=== PATIENT | female | born 1970 | race Caucasian/White ===

== ENCOUNTER → 2017-12-13 08:45 | Outpatient (POV) | payer BC, SELFPAY | PROVIDERS: Visit Provider Dermatology | DX: Z00.00 Encounter for general adult medical examination without abnormal findings (principal) ==

== ENCOUNTER → 2019-01-14 09:39 | Outpatient (POV) | payer BC, SELFPAY | PROVIDERS: Visit Provider Dermatology | DX: Z00.00 Encounter for general adult medical examination without abnormal findings (principal) ==

== ENCOUNTER → 2019-10-28 14:08 | Outpatient (CLI) | payer BC, SELFPAY ==
--- NOTE | 2019-10-28 14:12 | XR_ITS ---
PROCEDURE: XR CHEST 2V CLINICAL HISTORY: COUGH, SOB The cough and shortness of breath COMPARISON: CXR CHEST(2 VIEWS-NOT PORTABLE) from 09/11/2012 FINDINGS: The cardiomediastinal silhouette and pulmonary vascularity are within normal limits. The lungs are clear without infiltrates, suspicious nodules, or pleural effusions. No acute bony abnormalities. IMPRESSION: No acute findings. Dictated by: Sanchez Cortez MD 10/28/2019 15:01 Electronically signed by Sanchez Cortez MD in [place] 10/28/2019 15:02
== END ==
PROVIDERS: PCP Family Medicine; Visit Provider Family Medicine
DX: R06.02 Shortness of breath (principal); R05 Cough
CPT/HCPCS: 71046

== ENCOUNTER → 2021-03-07 08:05 | Outpatient (CLI) | payer SELFPAY ==
--- NOTE | 2021-03-07 08:10 | CT_ITS ---
PROCEDURE: CT HEART W CALCIUM SCORE CLINICAL HISTORY: SCREENING COMPARISON: No exams were available for comparison TECHNIQUE: Axial images obtained with sagittal and coronal reformats. All CT scans at the facility use one or more dose reduction, viz: automated exposure control, ma/kV adjustment per patient size (including targeted exams where dose is matched to indication, i.e. head), or iterative reconstruction technique. FINDINGS: Coronary calcium score is 0. No identifiable calcific atherosclerotic plaque with very low cardiovascular disease risk Incidental note is made of borderline splenomegaly at 14 cm. IMPRESSION: No identifiable calcific atherosclerotic plaque with very low cardiovascular disease risk Dictated by: Sanchez Cortez MD 03/07/2021 09:12 Sanchez Cortez MD in [facility] 03/07/2021 09:12
== END ==
PROVIDERS: PCP Family Medicine; Visit Provider Family Medicine
DX: Z13.6 Encounter for screening for cardiovascular disorders (principal)
CPT/HCPCS: 75571

== ENCOUNTER → 2021-03-15 14:43 | Outpatient (POV) | payer SELFPAY | PROVIDERS: Visit Provider Dermatology | DX: Z00.00 Encounter for general adult medical examination without abnormal findings (principal) ==

== ENCOUNTER → 2021-05-16 11:44 | Outpatient (CLI) | payer BC, SELFPAY | PROVIDERS: Visit Provider Surgery | DX: Z01.812 Encounter for preprocedural laboratory examination (principal); Z20.822 Contact with and (suspected) exposure to COVID-19; Z12.11 Encounter for screening for malignant neoplasm of colon | CPT/HCPCS: C9803; U0003; U0005 ==

== ENCOUNTER 2021-05-18 06:11 | Day surgery (SDC) | payer BC, SELFPAY ==
[2021-05-16 10:00] VITALS: BMI 36.8
[2021-05-18 06:31] VITALS: BP 135/87; PULSE 120; RESP 18; TEMP 36.2; O2SAT 96
[2021-05-18 07:07] LABS: HCG Qualitative, Serum Negative (Negative)
--- NOTE | 2021-05-18 07:22 | P.PN_ITS ---
[facility] Anesthesia Checklist - Patient Identification Patient Identification: Arm Band - Structural Data Admitted From: Home Planned Operative Procedure/s: colonoscopy Consent for Planned Operative Procedure(s) Verified: Yes Verified Documents: Surgical Consent, History and Physical - NPO Status Verified Time NPO: 00:00 - Additional verifications Anesthesia Reactions: No - Airway Assessment C-Spine Mobility Assessed: Yes (mp2) TMJ Mobility Assessed: Yes Dentition: Good Dentition - Neurological Assessment Level of Consciousness: Awake, Alert - Anesthesia Plan Anesthesia Risk discussed: Yes Anesthesia Plan: Verified ASA Class: II Anesthesia Type: MAC [facility] History I have reviewed the patient's past medical history: Yes Medical History: Denies:: Cancer, Diabetes Mellitus Type 1, Diabetes Mellitus Type 2, Hypertension, Internal Pacemaker, MRSA, Seizures *Have you ever received a pneumonia vaccine?: No *Have you received a flu vaccine this season?: Yes Other Medical History: Reports: Sinus Problems Anesthesia experience/problems:: nac Laterality Cases: Bilateral: Tonsillectomy Other Surgeries: Yes: . No: Pacemaker Amputation: No Fractures: Yes - *Social History Last grade of school completed: Advanced degree Smoking Status: Never smoker Alcohol Intake: current Alcohol Intake Frequency:: holidays/special occasions only Substance Use Type: denies use *Occupational Status:: employed Housing: house Household Members: spouse, family *Travel in the last 8 weeks: None Family Hx:: Cancer
[2021-05-18 07:25] VITALS: O2SAT 98
[2021-05-18 08:00] VITALS: BP 122/76; PULSE 98; RESP 18; TEMP 36.3; O2SAT 95
--- NOTE | 2021-05-18 08:01 | HMH.SCOPE ---
- Procedure: Date: 05/18/21 Patient Date of :: 1970 Procedure Performed:: Total colonoscopy to terminal ileum with polypectomy by snare Indications:: 51-year-old female referred for initial screening colonoscopy Performing Provider:: Jarvis Bryson MD Referring Provider:: Ollie Wilhelm MD Sedation:: MAC sedation Procedure:: Adequate intravenous sedation was achieved. Digital examination was performed which was unremarkable. Variable stiffness Olympus colonoscope was inserted via the anus. Was advanced to the cecum. Colonic preparation was good. During advancement of the colonoscope there was thought to be a possible sessile polyp in the sigmoid colon. The colonoscope was advanced a short distance into the terminal ileum which was grossly normal. It was withdrawn through the colon with careful surveillance with some irrigation and suctioning. A small adenomatous appearing polyp was noted in the descending colon removed with cold snare. In the distal sigmoid colon there was noted to be a small adenomatous polyp removed with cold snare. Due to the potential findings on advancement of the colonoscope with possible sessile polyp the colonoscope was actually readvanced to the right colon and withdrawn to the rectum with careful surveillance on 2 occasions and no sessile polyp was noted. Was felt that this likely conglomeration of mucus which had dissipated. Essentially the colon was evaluated in his entirety 3 times. Retroflexion was performed within the rectum which revealed no evidence of any pathologic internal hemorrhoids. Colonoscope was withdrawn. Findings:: Polyps Recommendations:: Pending pathology repeat colonoscopy likely within 5 years Complications:: None immediately apparent Estimated blood obtained (mL): 2
[2021-05-18 08:10] VITALS: BP 148/89; PULSE 89; RESP 18; O2SAT 98
[2021-05-18 08:20] VITALS: BP 146/89; PULSE 83; RESP 18; O2SAT 98
[2021-05-18 08:30] VITALS: BP 133/92; PULSE 80; RESP 18; O2SAT 97
== END 2021-05-18 08:30 | disposition home or self-care (01) ==
LOC: OUTP 06:13
PROVIDERS: PCP Family Medicine; Visit Provider Surgery
PROC: 0DJD8ZZ Inspection of Lower Intestinal Tract, Via Natural or Artificial Opening Endoscopic (ICD-10-PCS; CPT 45385; principal; 2021-05-18 07:30)
DX: Z12.11 Encounter for screening for malignant neoplasm of colon (principal); Z80.9 Family history of malignant neoplasm, unspecified; Z88.1 Allergy status to other antibiotic agents; Z88.2 Allergy status to sulfonamides; Z91.048 Other nonmedicinal substance allergy status
CPT/HCPCS: 45385; 84703

== ENCOUNTER → 2021-09-01 09:12 | Outpatient (CLI) | payer BC, SELFPAY | PROVIDERS: PCP Family Medicine; Visit Provider Nurse Practitioner | DX: U07.1 COVID-19 (principal) | CPT/HCPCS: C9803; U0003; U0005 ==

== ENCOUNTER → 2023-01-19 23:21 | Outpatient (CLI) | payer BC, SELFPAY | LOC: LAB.DROPOF 23:22 | PROVIDERS: PCP Student in an Organized Health Care Education/Training Program; Visit Provider Student in an Organized Health Care Education/Training Program | DX: U07.1 COVID-19 (principal); J02.9 Acute pharyngitis, unspecified; R05.9 Cough, unspecified | CPT/HCPCS: 87635; C9803; U0003; U0005 ==

== ENCOUNTER → 2023-03-13 11:29 | Outpatient (CLI) | payer BC, SELFPAY ==
[2023-03-13 11:36] LABS: Basophils # 0.1 K/mm3 (0-0.2); Basophils % 0.7 % (0.1-2.0); Eosinophils # 0.2 K/mm3 (0.0-0.4); Eosinophils % 1.7 % (0.1-12.0); Hematocrit 48.9 % (37.0-47.0); Hemoglobin 15.8 g/dL (12.2-16.2); Lymphocytes # 2.2 K/mm3 (0.7-4.5); Lymphocytes % 24.1 % (10-50); Mean Corpuscular HGB Conc 32.2 g/dL (31.8-35.4); Mean Corpuscular Hemoglobin 29.4 pg (27.0-31.2); Mean Corpuscular Volume 91.1 fl (81-99); Mean Platelet Volume 8.2 fl (7.4-10.4); Monocytes # 0.5 K/mm3 (0.1-1.0); Monocytes % 4.9 % (1.7-9.3); Neutrophils # 6.3 K/mm3 (1.8-7.8); Neutrophils % 68.6 % (37.0-80.0); Platelet Count 261 K/mm3 (142-424); Red Blood Count 5.37 M/mm3 (4.20-5.40); Red Cell Distribution Width 13.5 % (11.5-17.5); White Blood Count 9.2 K/mm3 (4.8-10.8)
[2023-03-13 12:15] LABS: Alanine Aminotransferase 42 U/L (12-78); Albumin Level 4.4 g/dl (3.5-5.0); Albumin/Globulin Ratio 1.3 (1.1-1.8); Alkaline Phosphatase 103 U/L (38-126); Anion Gap 11.9 mEq/L (5-15); Aspartate Amino Transferase 34 U/L (14-36); Bilirubin,Total 0.4 mg/dl (0.2-1.3); Blood Urea Nitrogen 14 mg/dl (7-17); Calcium 9.8 mg/dl (8.4-10.2); Carbon Dioxide 30 mmol/L (22.0-30.0); Chloride 104 mmol/L (98-107); Chol/HDL Ratio 6.1 (1-3.5); Cholesterol 171 mg/dl (140-200); Estimated Glomerular Filt Rate 88 ml/min (>60); GFR (African American) 106 ML/MIN (>60); Globulin 3.5 g/dL (1.3-3.2); Glucose 121 mg/dl (74-100); HDL Cholesterol 28 mg/dl (40-60); Potassium 4.9 mmoL/L (3.5-5.1); Sodium 141 mmol/L (136-145); Total Protein,Serum 7.9 g/dl (6.3-8.2); Triglycerides 197 mg/dl (30-150); VLDL Cholesterol 39 mg/dL (0-40)
[2023-03-13 12:27] LABS: Direct LDL Cholesterol 105.62 mg/dL (100-129)
[2023-03-13 12:33] LABS: 25-OH Vitamin D, Total 40.4 ng/mL (30-100)
[2023-03-13 12:47] LABS: Thyroid Stimulating Hormone 1.39 uIU/mL (0.465-4.68)
[2023-03-13 13:28] LABS: Hemoglobin A1C 5.9 % (4.0-6.0)
[2023-03-13 13:35] LABS: Free T4 (Free Thyroxine) 1.19 ng/dl (0.78-2.19)
== END ==
PROVIDERS: PCP Internal Medicine; Visit Provider Internal Medicine
DX: Z00.00 Encounter for general adult medical examination without abnormal findings (principal); R73.09 Other abnormal glucose; E66.9 Obesity, unspecified; Z68.39 Body mass index [BMI] 39.0-39.9, adult; Z79.899 Other long term (current) drug therapy
CPT/HCPCS: 80053; 80061; 82306; 83036; 84439; 84443; 85025

== ENCOUNTER 2024-05-29 18:05 | Outpatient (CLI) | payer BC, OTHER, SELFPAY ==
[2024-05-29 17:23] LABS: Basophils # 0.1 K/mm3 (0-0.2); Basophils % 1.3 % (0.1-2.0); Eosinophils # 0.1 K/mm3 (0.0-0.4); Eosinophils % 1.1 % (0.1-12.0); Hematocrit 48.5 % (37.0-47.0); Hemoglobin 16.7 g/dL (12.2-16.2); Lymphocytes # 2.9 K/mm3 (0.7-4.5); Lymphocytes % 25.4 % (10-50); Mean Corpuscular HGB Conc 34.5 g/dL (31.8-35.4); Mean Corpuscular Hemoglobin 31.2 pg (27.0-31.2); Mean Corpuscular Volume 90.5 fl (81-99); Mean Platelet Volume 7.8 fl (7.4-10.4); Monocytes # 0.7 K/mm3 (0.1-1.0); Monocytes % 6.3 % (1.7-9.3); Neutrophils # 7.5 K/mm3 (1.8-7.8); Platelet Count 203 K/mm3 (142-424); Red Blood Count 5.36 M/mm3 (4.20-5.40); Red Cell Distribution Width 13.8 % (11.5-17.5); White Blood Count 11.3 K/mm3 (4.8-10.8)
[2024-05-29 17:59] LABS: Hemoglobin A1C 6.9 % (4.0-6.0)
[2024-05-29 18:30] LABS: Albumin Level 4.8 g/dl (3.5-5.0); Chloride 101 mmol/L (98-107)
[2024-05-29 18:31] LABS: Potassium 4.8 mmoL/L (3.5-5.1); Sodium 141 mmol/L (136-145)
[2024-05-29 18:33] LABS: Alanine Aminotransferase 54 U/L (12-78); Aspartate Amino Transferase 53 U/L (14-36); Blood Urea Nitrogen 14 mg/dl (7-17); Carbon Dioxide 31 mmol/L (22.0-30.0); Estimated Glomerular Filt Rate 87 ml/min (>60); GFR (African American) 106 ML/MIN (>60); Total Protein,Serum 8.9 g/dl (6.3-8.2)
[2024-05-29 18:34] LABS: Alkaline Phosphatase 103 U/L (38-126); Bilirubin,Total 1.1 mg/dl (0.2-1.3); Calcium 10.2 mg/dl (8.4-10.2); Chol/HDL Ratio 6.1 (1-3.5); Cholesterol 184 mg/dl (140-200); Glucose 113 mg/dl (74-100); HDL Cholesterol 30 mg/dl (40-60); Triglycerides 175 mg/dl (30-150); VLDL Cholesterol 35 mg/dL (0-40)
[2024-05-29 18:40] LABS: Albumin/Globulin Ratio 1.2 (1.1-1.8); Anion Gap 13.8 mEq/L (5-15); Globulin 4.1 g/dL (1.3-3.2)
[2024-05-29 18:45] LABS: Direct LDL Cholesterol 115.99 mg/dL (100-129)
[2024-05-29 18:53] LABS: HIV (1&2) Antibody Rapid NONREACTIVE (NONREACTIVE)
[2024-05-31 08:28] LABS: HCV Ab Non Reactive (Non Reactive)
== END 2024-05-29 23:59 | disposition home or self-care (01) ==
LOC: LAB.DROPOF 18:05
PROVIDERS: PCP Internal Medicine; Visit Provider Internal Medicine
DX: Z11.4 Encounter for screening for human immunodeficiency virus [HIV] (principal); Z00.00 Encounter for general adult medical examination without abnormal findings; Z13.1 Encounter for screening for diabetes mellitus; Z13.220 Encounter for screening for lipoid disorders; Z11.59 Encounter for screening for other viral diseases
CPT/HCPCS: 80053; 80061; 83036; 85025; 86803; 87389

== ENCOUNTER 2024-06-04 07:15 | Outpatient (CLI) | payer BC, OTHER, SELFPAY ==
--- NOTE | 2024-06-04 07:15 | US_ITS ---
PROCEDURE INFORMATION: Exam: US Abdomen, Limited; Right Upper Quadrant Exam date and time: 06/04/2024 7:15 AM Age: 54 years old Clinical indication: Abdominal pain; Acute; Additional info: Ruq pain TECHNIQUE: Imaging protocol: Real time ultrasound of the abdomen with image documentation. Limited exam focused on the right upper quadrant. COMPARISON: CT HEART W CALCIUM SCORE 03/07/2021 8:19 AM FINDINGS: Liver: Diffuse coarsened increased echogenicity of the liver consistent with fatty infiltration or other diffuse hepatocellular process. No mass or intrahepatic biliary duct dilatation. Appropriate color flow within the hepatic and portal veins. Gallbladder: Few small gallstones/gravel within the gallbladder as well as a small amount of sludge. No significant gallbladder wall thickening. Biliary ducts: Bile ducts are normal in caliber. CBD 3.1 mm. Pancreas: Visualized pancreas is unremarkable. Right kidney: Right kidney measures 10.3 cm in length. No hydronephrosis. Intraperitoneal space: No free fluid. IMPRESSION: 1. Diffuse coarsened increased echogenicity of the liver consistent with fatty infiltration or other diffuse hepatocellular process. 2. Few small gallstones/gravel within the gallbladder as well as a small amount of gallbladder sludge.
== END 2024-06-04 23:59 | disposition home or self-care (01) ==
LOC: RAD 07:15
PROVIDERS: PCP Internal Medicine; Visit Provider Internal Medicine
DX: R10.11 Right upper quadrant pain (principal)
CPT/HCPCS: 76705

== ENCOUNTER 2024-12-12 16:32 | Outpatient (CLI) | payer BC, OTHER, SELFPAY ==
--- NOTE | 2024-12-12 16:36 | XR_ITS ---
PROCEDURE INFORMATION: Exam: XR Right Shoulder Exam date and time: 12/12/2024 4:38 PM Age: 54 years old Clinical indication: Pain; Shoulder; Right; Additional info: Rotator cuff injury TECHNIQUE: Imaging protocol: Radiologic exam of the right shoulder. Views: 2 or more views. COMPARISON: CT HEART W CALCIUM SCORE 03/07/2021 8:19 AM FINDINGS: Bones/joints: No acute fracture or dislocation. Mild spurring at the margins of the acromioclavicular joint. Benign-appearing ill-defined sclerotic bone lesion in the central aspect of the humeral head. The right ribs are unremarkable. Soft tissues: Normal. IMPRESSION: 1. Benign-appearing humeral head bone lesion which was faintly seen on a prior exam from 10/28/2019. 2. AC joint degenerative changes.
[2024-12-12 16:59] LABS: Microalbumin/Creatinine Ratio 15.9
[2024-12-12 17:00] LABS: Creatinine,Urine Random 240 mg/dL (Not Estab.)
== END 2024-12-12 23:59 | disposition home or self-care (01) ==
LOC: RAD 16:33
PROVIDERS: PCP Internal Medicine; Visit Provider Internal Medicine
DX: S46.001A Unspecified injury of muscle(s) and tendon(s) of the rotator cuff of right shoulder, initial encounter (principal); M25.711 Osteophyte, right shoulder; M19.011 Primary osteoarthritis, right shoulder; M75.81 Other shoulder lesions, right shoulder; E11.9 Type 2 diabetes mellitus without complications; Z79.85 Long-term (current) use of injectable non-insulin antidiabetic drugs
CPT/HCPCS: 73030; 82043; 82570

== ENCOUNTER 2025-01-07 16:00 | Outpatient (RCR) | payer BC, OTHER, SELFPAY ==
--- NOTE | 2024-12-29 16:57 | HMH.PTOPEV ---
PT Outpatient Evaluation Rehab PT Outpatient Evaluation Start: 12/29/24 15:50 Freq: Status: Active Protocol: Document 12/29/24 15:50 RENUKA (Rec: 12/29/24 16:56 RENUKA [id number]) E-signed By Jose Luis Tony, PT Outpatient Therapy Subjective History Subjective History Pt is a 54 yof who is referred to [facility] outpatient PT with complaints of R shoulder pain that began approximately 2-3 months ago. Pt reports that she had x-rays done which were negative. Pt reports that her motion is fine in all directions except reaching behind her back and reaching upwards and backwards. Pt reports that she also has difficulty fastening her bra. Pt reports that she is unable to latch her door in her classroom open due to it being a fire door. Pt also reports difficulty reaching into her cabinets at school and when cooking. Pt reports significant difficulty sleeping due to pain when laying on her R shoulder. Occupation: Teacher PMH: T2DM New diagnosis of cancer in past 12 No months? Chief Complaint Pain,Clicks,Gives out/Unstable Symptom Type Ache,Sharp Symptoms Relieved By Ice,OTC Meds,Prescription Meds Symptoms Aggravated By Lifting Prior Functional Limitations None Current Functional Limitations Reaching,Lifting,Housework Symptom Description Constant but Variable,Activity Dependent Level of pain today (0-10) 8 Pain scale - at its best (0-10) 1 Pain scale - at its worst (0-10) 9 Shoulder/Elbow Eval Shoulder Objective Measurements Palpation Tenderness tenderness shoulder exam standard right Shoulder Palpation Findings Tenderness Shoulder Palpation Overall Comment TTP 3/4 in intertubecular groove Posture Shoulder Posture Sitting Position Neutral Shoulder Posture Standing Position Neutral Shoulder ROM Right Shoulder Abduction Active Range of 150 Motion (degrees) Shoulder Abduction Passive Range of 155 Motion (degrees) Shoulder Flexion Active Range of Motion 170 (degrees) Query Text: Shoulder Flexion Passive Range of Motion 175 (degrees) Shoulder External Rotation Active Range 80 of Motion (degrees) Shoulder External Rotation Passive Range 85 of Motion (degrees) Shoulder Internal Rotation Active Range 50 of Motion (degrees) Shoulder Internal Rotation Passive Range 55 of Motion (degrees) pain with active ROM shoulder exam right standard pain with passive ROM shoulder exam right standard full ROM shoulder exam standard left Shoulder MMT Shoulder Abduction Strength Grade 4 Good Shoulder Extension Strength Grade 4 Good Shoulder Flexion Strength Grade 4- Good- Shoulder Horizontal Abduction Strength 3 Fair Grade Shoulder Horizontal Adduction Strength 4 Good Grade Shoulder External Rotation Strength 3+ Fair+ Grade Shoulder Internal Rotation Strength 2+ Poor+ Grade Shoulder Special Tests Shoulder Drop Arm Test Negative Right Shoulder Posterior Apprehension Test Negative Right Shoulder Clunk Test Negative Right Shoulder Empty Can (Supraspinatus) Test Negative Right Shoulder Grind Test Negative Right Shoulder Gant-Earl Impingement Positive Right Test Shoulder Neer Impingement Test Positive Right Shoulder Saunders Test Positive Right Elbow Objective Measurements QuickDASH Activities Please rate your ability to do the following activities in the last week by selecting the number below the appropriate response. 1. Open a tight or new jar. No difficulty 2. Do heavy jump iron machine presser (e.g., wash No difficulty pena, floors). 3. Carry a shopping bag or briefcase. No difficulty 4. Wash your back. Moderate difficulty 5. Use a knife to cut food. No difficulty 6. Recreational activities in which you No difficulty take some force or impact through your arm, shoulder, or hand (e.g., golf, hammering, tennis, etc.). 7. During the past week, to what extent Quite a bit has your arm, shoulder or hand problem interfered with your normal social activities with family, friends, neighbors or groups? 8. During the past week, were you Slightly limited limited in your work or other regular daily activites as a result of your arm, shoulder or hand problem? 9. Arm, shoulder or hand pain. Severe 10. Tingling (pins and needles) in your Mild arm, shoulder or hand. 11. During the past week, how much Severe difficulty difficulty have you had sleeping because of the pain in your arm, shoulder or hand? Quick DASH 24 Miscellaneous Dx PT Eval Objective Objective Dynamic Labral Shear Test: + Outpatient Therapy Assessment Impairments Problems/Impairmments Palpation Tenderness,Impaired Range of Motion,Impaired Strength,Impaired Dressing, Impaired Household Care, Impaired Work Activities, Subjective C/O Pain Prognosis Rehab Potential Good Clinical Impression Consistent with Diagnosis Yes Consistent with Labral Pathology Additional details: Pt's signs and symptoms are consistent with a R Labral pathology. Pt would benefit from scapular, RC strengthening and motor control. Short Term Goals Number of Weeks 4 Decreased Palpation Tenderness Yes: 2/4 to TTP assessment above Increase Range of Motion Yes: IR to 65 Increase Strength Yes: 3+/5 to R shoulder globally Improve Tolerance to Work Activities Yes: Normal day's work without increasing pain Improve Quick Dash Score Yes: <19 Decrease Subjective C/O Pain Yes: 5/10 with above assessment Patient to be Ind w/ HEP Yes Supervisor [employer] Goals Number of Weeks 8 Decreased Palpation Tenderness Yes: 0-1/4 to TTP assessment above Increase Range of Motion Yes: IR to 80 Increase Strength Yes: 4+/5 to R shoulder globally Restore Ability to Lift Objects Overhead Yes: 3# with proper SH rhythm and without increasing pain Improve Ability to Dress Self Yes: Fasten bra without increasing pain Improve Ability For Household Care Yes: Able to reach for cabinets without increasing pain Improve Quick Dash Score Yes: <14 Decrease Subjective C/O Pain Yes: 2-3/10 with above assessment Patient to be Ind w/ Advanced HEP Yes Outpatient Therapy Plan of Care Treatment Plan May Include Therapeutic Exercise Including Home Yes Exercise Program Manual Therapy Techniques Yes Neuromuscular Re-education Yes Therapeutic Activities to Return to Yes Previous Functional/Work Level ADL/Self Care Education Yes Dry Needling Yes Thermal Modalities Yes Electrical Stimulation Yes Manual Lymphatic Drainage Yes Eval/Re-Eval Yes Frequency Times per week 2 Duration Number of Weeks 8 Addendums This patient is a candidate for social No or vocational rehab? Patient/Guardian verbally acknowledges Yes understanding of treatment program and consents to further treatment? Patient/Guardian verbally acknowledges Yes understanding of diagnosis, prognosis and goals for treatment? Eval Complexity PT Charges 75159 - Low Complexity PHYSICIAN CERTIFICATION: I certify the specified therapy services for Deanna Wilder are required, authorized, and reviewed every 30 days.
== END 2025-01-09 23:59 | disposition home or self-care (01) ==
LOC: PT 16:00
PROVIDERS: PCP Internal Medicine; Visit Provider Internal Medicine
DX: S46.001A Unspecified injury of muscle(s) and tendon(s) of the rotator cuff of right shoulder, initial encounter (principal)
CPT/HCPCS: 97014; 97035; 97110; 97163; 97530; G0283

== ENCOUNTER 2025-01-09 06:47 | Outpatient (CLI) | payer BC, OTHER, SELFPAY ==
--- NOTE | 2025-01-09 07:00 | MR_ITS ---
FINAL REPORT CLINICAL HISTORY: Rotator cuff injury. right shoulder pain. pain when raising arm above head. symptoms x3-4months. no injury or trauma. COMPARISON: None FINDINGS: Multi planar MR imaging of the right shoulder was performed. The supraspinatus tendon appears intact. There is no abnormal fluid in the subacromial/subdeltoid bursa. There is a lobular complex signal abnormality in the humeral head measuring 2.6 x 2.5 cm, probably related to an enchondroma. The posterior labrum is intact. There is a defect extending across the anterior labrum consistent with tear. Subscapularis tendon is intact. The biceps tendon appears intact. There are mild hypertrophic changes at the acromioclavicular joint. IMPRESSION: Mild hypertrophic changes at the acromioclavicular joint. Tear of the anterior labrum. Presumed enchondroma. Reviewed, Interpreted and Dictated by Matthew Cordova MD Transcribed by Chantale Martin Authenticated and [facility]
== END 2025-01-09 23:59 | disposition home or self-care (01) ==
LOC: RAD 06:48
PROVIDERS: PCP Internal Medicine; Visit Provider Internal Medicine
DX: S43.491A Other sprain of right shoulder joint, initial encounter (principal); M24.9 Joint derangement, unspecified
CPT/HCPCS: 73221

== ENCOUNTER 2025-01-19 10:00 | Outpatient (RCR) | payer BC, OTHER, SELFPAY | END 2025-01-19 23:59 | disposition home or self-care (01) | LOC: PT 10:00 | PROVIDERS: PCP Internal Medicine; Visit Provider Internal Medicine | DX: S46.001A Unspecified injury of muscle(s) and tendon(s) of the rotator cuff of right shoulder, initial encounter (principal) | CPT/HCPCS: 97014; 97016; 97033; 97035; 97110; G0283 ==

== ENCOUNTER 2025-03-09 06:23 | Day surgery (SDC) | payer BC, OTHER, SELFPAY ==
[2025-03-05 09:35] VITALS: BMI 36.1
--- NOTE | 2025-03-09 07:12 | EXP.HP ---
History of Present Illness *Admission Date: 03/09/25 *Reason for visit:: Personal history of adenomatous colon polyps *History of present illness: Mrs. Wilder is a 55-year-old female who is here for screening/surveillance colonoscopy secondary to a personal history of adenomatous colon polyps. The examination is deemed medically necessary for surveillance colonoscopy. The patient has been seen, interviewed and examined prior to the procedure by both myself and the anesthesia provider. [facility] Disclaimer: The information contained in this section may have been updated after the patient was seen, as this information can be updated by other users. Medical History Back pain History of abdominal hernia History of diabetes mellitus History of anxiety Neoplasm of skin Normal colonoscopy 2020 HX: benign breast biopsy left Chemical pneumonia Depression Migraine Surgical History Hx of section S/P tonsillectomy S/P ORIF (open reduction internal fixation) fracture Family History Father Cancer tonsil Mother Cancer breast Other Migraine Social History Smoking Status: Never smoker second hand exposure: No alcohol intake: current alcohol intake frequency: a few times a week substance use type: denies use current occupational status: employed Travel in the last 8 weeks?: None household members: spouse and family housing: house number of children: 1 current occupation: Teacher current occupational exposures/hazards: No caffeine: Yes Have you lived/traveled outside [place] in past 30 days?: No Contact w/someone who lives/traveled outside US past 30 days?: No Exposure to someone with infectious disease in past 14 days?: No Do you have a fever (greater than 100.4 F or 38 C)?: No Have you tested positive for COVID-19?: No Exposed to someone with COVID-19 in past 14 days?: No Do you have a sore throat?: No Do you have a cough?: No Do you have any weakness?: No Do you have any diarrhea?: No Are you experiencing any unusual bleeding?: No Do you have any muscle aches/pain?: No Do you have any abdominal pain?: No Are you experiencing loss of taste or smell?: No Other Medical History Have you received the Flu Vaccine for this season: No Have you received the Pneumonia Vaccine: No Review of Systems Review of Systems Review of systems (narrative): Negative *Cardiovascular Comments: Negative *Gastrointestinal Comments: Negative *Genitourinary Comments: Negative *Musculoskeletal Comments: Negative *Neurologic Comments: Negative Meds Home Medications and Allergies Home Medications ?Medication ?Instructions ?Recorded ?Confirmed ?Type cholecalciferol (vitamin D3) 50 50 mcg PO DAILY 03/13/23 03/09/25 History mcg (2,000 unit) capsule ibuprofen 600 mg tablet 600 mg PO Q8H PRN Mild Pain (Scale 03/13/23 03/09/25 History Score 1-4) multivitamin (Daily Multi-Vitamin 1 tab PO DAILY 03/13/23 03/09/25 History tablet) fluticasone propionate 50 1 spray intranasal DAILY #16 grams 07/23/23 03/09/25 Rx mcg/actuation nasal spray,suspension (Allergy Relief (fluticasone)) Bifidobacterium infantis 10.5 mg 1,000 mg PO DAILYDM 11/07/23 03/09/25 History (10 million cell) chewable tablet (Align (B.infantis)) cetirizine 10 mg disintegrating 10 mg PO DAILY PRN Allergy Symptoms 11/07/23 03/09/25 History tablet estradiol 0.05 mg-norethindrone 1 patch transdermal ONCE #8 ea 06/23/24 03/09/25 Rx 0.14 mg/24 hr semiwkly transderm patch (CombiPatch) acyclovir 5 % topical ointment 1 applic topical 6XD 7 days #5 01/08/25 03/09/25 Rx (Zovirax) grams tirzepatide 10 mg/0.5 mL 10 mg (0.5 mL) SQ WEEKLY #2 mL 02/10/25 03/09/25 Rx subcutaneous pen injector (Mounjaro) metaxalone 800 mg tablet See Rx Instructions .Route 03/06/25 03/09/25 Rx .COMPLEX #30 tabs omeprazole 20 mg tablet,delayed 20 mg PO DAILY 03/09/25 03/09/25 History release New Prescriptions to Start Prescriptions: Allergies Allergy/AdvReac Type Severity Reaction Status Date / Time ampicillin Allergy Mild Rash Verified 03/09/25 07:23 contact metal agent Allergy Mild Blisters Verified 03/09/25 07:23 Sulfa (Sulfonamide Allergy Mild Itching Verified 03/09/25 07:23 Antibiotics) Exam *Routine HEENT Exam Head: Present normocephalic Eye: Present EOMI and PERRL ENT: Present mucous membranes moist *Routine Neck Exam Neck: Present supple *Routine Respiratory Exam Respiratory: Present CTA bilaterally *Routine Cardiovascular Exam Cardiovascular: Present RRR *Routine Abdominal Exam Abdominal: Present soft and normoactive bowel sounds; Absent tenderness *Routine Rectal Exam Rectal:: deferred *Routine Genitalia Exam Genitalia:: deferred *Routine Extremities Exam Extremities: Absent cyanosis, clubbing or edema *Routine Skin Exam Skin: Present warm; Absent rash *Routine Neurological Exam Neurological: Present alert and oriented X3 Assessment and Plan *Assessment and plan (1) Personal history of adenomatous and serrated colon polyps: Status: Acute Category: Medical Code(s): Z86.0101 - Personal history of adenomatous and serrated colon polyps Plan A/P: 1. Personal history of adenomatous colon polyps is the preprocedural diagnosis. The patient's last colonoscopy was in May 2021 (Jarvis Bryson) the patient will be anesthetized/sedated using MAC sedation. The patient has been seen and examined. Cardiac and lung assessment prior to the examination is stable. Proceed with planned screening/surveillance colonoscopy.
[2025-03-09 07:26] VITALS: BP 139/65; PULSE 94; RESP 18; TEMP 36.3; O2SAT 96
--- NOTE | 2025-03-09 07:32 | HMH.PROCNOTE ---
[facility] Procedure Note Date: 03/09/25 Time: 08:20 Procedure Note:: Colonoscopy Procedure Report: Colonoscopy with cold snare polypectomy Endoscopist: German Turner II, MD Referring physician: Kranthi Chen DO Date of Procedure: March 09, 2025 Equipment: Olympus [id number] adult colonoscope Sedation: MAC sedation Indication: Mrs. Wilder is a 55-year-old female who is here for follow-up screening/surveillance colonoscopy. The patient did have a colonoscopy in May 2021 at which time she had a couple of polyps (tubular adenomas) removed (Jarvis Bryson MD). The patient reports no abdominal pain, weight loss, change in her bowel habits or family history of colon cancer. She did have a brief bout of bright red rectal bleeding in December 2024 that was felt to be hemorrhoidal. Procedure: Prior to the procedure, a history and physical exam was performed, and patient's medications and allergies were reviewed. The risks, benefits and alternatives of the sedation and procedure were discussed with the patient. All questions were answered and informed consent was obtained. The patient was brought to the procedure room. Patient identification and proposed procedure were verified by the physician and the nurse. The patient was placed in a left lateral decubitus position and the scope was passed under direct vision. Throughout the procedure, the patient's blood pressure, pulse, and oxygen saturations were monitored continuously. The colonoscopy was accomplished without difficulty. The patient tolerated the procedure well. Findings: On digital rectal examination there was normal rectal tone. There were no external hemorrhoids. The colonoscope was introduced through the anal canal to the rectum and advanced to the cecum. The ileocecal valve and appendiceal orifice were identified. The scope was advanced a short distance into the ileum which appeared grossly normal. The scope was then withdrawn into the colon. The cecum, ascending and transverse colon and mucosa were grossly normal. There were 2 colon polyps (transverse x 1 (11 mm) and sigmoid x 1 (8 mm)). Both of these were removed via cold snare polypectomy. There were very mildly scattered shallow diverticuli throughout the sigmoid colon (LEFT colon). The rectum itself was normal. Upon retroflexion within the rectum there were grade 2 internal hemorrhoids. The preparation was excellent throughout with [place] Preparation Score of 9. The cecal time was 12 minutes. Impression: 1. Colonic polyps x 2 (8 and 11 mm) 2. Mild sigmoid diverticulosis 3. Grade 2 internal hemorrhoids Plan: I will follow-up the polyp histology and recommend repeat surveillance colonoscopy again in 5 years. I would encourage psyllium bulking fiber supplementation on a maintenance basis.
[2025-03-09] MEDS: LACTATED RINGERS 1000ML 1,000 ML 50 ML IV (07:34)
[2025-03-09 07:37] LABS: POC Glucose,Bedside 114 (70-110)
[2025-03-09 08:21] VITALS: BP 90/52; PULSE 92; RESP 18; TEMP 36.1; O2SAT 96
[2025-03-09 08:31] VITALS: BP 96/57; PULSE 88; RESP 18; TEMP 36.1; O2SAT 96
[2025-03-09 08:41] VITALS: BP 108/61; PULSE 81; RESP 18; TEMP 36.1; O2SAT 99
[2025-03-09 08:51] VITALS: BP 110/70; PULSE 79; RESP 18; TEMP 36.1; O2SAT 99
== END 2025-03-09 09:04 | disposition home or self-care (01) ==
PROVIDERS: PCP Internal Medicine; Visit Provider Internal Medicine Gastroenterology
PROC: 0DJD8ZZ Inspection of Lower Intestinal Tract, Via Natural or Artificial Opening Endoscopic (ICD-10-PCS; CPT 45378; principal; 2025-03-09 08:00)
DX: Z12.11 Encounter for screening for malignant neoplasm of colon (principal); D12.5 Benign neoplasm of sigmoid colon; D12.3 Benign neoplasm of transverse colon; K57.30 Diverticulosis of large intestine without perforation or abscess without bleeding; K64.1 Second degree hemorrhoids; Z86.0101 Personal history of adenomatous and serrated colon polyps; Z79.899 Other long term (current) drug therapy; Z88.2 Allergy status to sulfonamides; Z88.0 Allergy status to penicillin
CPT/HCPCS: 45385; 82962; J2003; J2704; J7120

== ENCOUNTER 2025-03-17 15:49 | Outpatient (CLI) | payer BC, OTHER, SELFPAY ==
--- OUTSIDE RECORDS SUMMARY | 2025-03-17 15:51 | XMS_ITS | Clinical Summary ---
Author Organization [facility] Address [address] [id number] Care Team Providers Care Corporate Securities Research Analyst Name Role Phone Gustavo Kranthi Solorzano DO Primary Care Provider + Allergies Active Allergy Reactions Criticality Noted Date Comments Other Dermatitis High 02/28/2018 Allergic to metal alloys including Surgical Steel/ Blisters Penicillins Rash High 02/28/2018 Rash Sulfa Antibiotics Rash High 02/28/2018 Rash Medications No known medications Active Problems No known active problems Family History Medical History Relation Name Comments Breast cancer Mother Ovarian cancer Neg Hx Relation Name Status Comments Mother Social History Tobacco Use Types Packs/Day Years Used Date Smoking Tobacco: Never Smokeless Tobacco: Never Alcohol Use Standard Drinks/Week Comments Yes 0 (1 standard drink = 0.6 oz pur e alcohol) rare Comments No Sex and Gender Information Value Date Recorded Sex Assigned at Not on file Legal Sex Female 10:43 AM EDT Gender Identity Not on file Sexual Orientation Not on file Last Filed Vital Signs Vital Sign Reading Time Taken Comments Blood Pressure 122/80 03/15/2021 9:14 AM EDT Pulse - - Temperature - - Respiratory Rate - - Oxygen Saturation - - Inhaled Oxygen Concentration - - Weight 117 kg (257 lb 6.4 oz) 03/15/2021 9:14 AM EDT Height 172.7 cm (5' 8 ) 03/15/2021 9:14 AM EDT Body Mass Index 39.14 03/15/2021 9:14 AM EDT Plan of Treatment Health Maintenance Due Date Last Done Comments Annual Gynecologic Pelvic an d Breast Exam 1970 TDAP/TD VACCINES (1 - Tdap) 1989 COLOGUARD 2015 COLON CANCER SCREENING 5 YEA R SIGMOIDOSCOPY 2015 COLONOSCOPY 2015 [address]AL CANCER SCREENING 2015 CT COLONOGRAPHY 2015 FECAL OCCULT BLOOD TEST 2015 FIT Testing (1 year) 2015 Pneumococcal Vaccine 50+ (1 of 1 - PCV) 02/09/2020 ANNUAL PHYSICAL 03/15/2021 HEPATITIS C SCREENING 03/15/2021 INFLUENZA VACCINE 05/13/2025 05/18/2024, , 05/26/2022, Additional history exists MAMMOGRAM 08/01/2026 08/01/2024, 09/2022, 02/03/2022, Additional history exists ZOSTER VACCINE Completed 05/21/2023, 03/14/2023 COVID-19 Vaccine Completed 05/18/2024, , 05/26/2022, Additional history exists Procedures Procedure Name Priority Date/Time Associated Diagnosis Comments MAMMO SCREENING DIGITAL TOMOSYNTHESIS BILATERAL W CAD Routine 08/01/2024 10:15 AM EST Visit for screening mammogram from Last 3 Months or Most Recently Relevant to Health Maintenance Results * Mammo Screening Digital Tomosynthesis Bilateral With CAD (08/01/2024 10:15 AM EST) Anatomical Region Laterality Modality Breast N/A Mammography 08/11/2024 11:3 5 AM EST Impressions 08/11/2024 11:40 AM EST No findings suspicious for malignancy. ACR BI-RADS CATEGORY: 1, NEGATIVE RECOMMENDATION: Yearly mammogram, yearly clinical breast exam, and encourage self breast awareness. As the patient's calculated lifetime risk of breast cancer is 20.5%, she is considered at high risk for developing breast malignancy and annual high-risk screening with breast MRI is recommended. CAD was used. The standard false negative rate of mammography is between 10% and 25%. Complex patterns or increased breast density will markedly elevate the false negative rate of mammography. A letter, in lay terminology, with the results of this exam will be mailed to the patient. If there is a palpable area of concern, biopsy should be considered regardless of imaging findings. This report was finalized on 08/11/2024 11:40 AM by Lexi Stevens MD. Narrative 08/11/2024 11:40 AM EST ROUTINE DIGITAL SCREENING MAMMOGRAM WITH TOMOSYNTHESIS HISTORY: Routine screening. IMAGE COMPARISON: Extending to 2020. TECHNIQUE: Low dose full field digital breast tomosynthesis imaging was performed with 2D and 3D acquisitions consisting of bilateral CC and MLO views. FINDINGS: There are scattered fibroglandular densities. The fibroglandular pattern appears stable. There is no mass, worrisome microcalcifications, or architectural distortion to suggest development of malignancy. us Kranthi Chen DO IMG MAMMOGRAPHY ORDERABL ES Final Result from Last 3 Months or Most Recently Relevant to Health Maintenance Insurance [place] [id number] [employer] Care Teams Corporate Securities Research Analyst Relationship Specialty Start Date End Date Kranthi Chen DO [address] [place] [id number] PCP - General Internal Medicine 05/14/23
--- NOTE | 2025-03-17 16:00 | US_ITS ---
PROCEDURE: US TRANSVAGINAL CLINICAL INDICATION: PMB Bleeding COMPARISON: No exams were available for comparison FINDINGS: Transvaginal sonographic images of the pelvis were obtained. UTERUS: 7.4cm x 4.2cmx 3.1cm anteverted with a combined endometrial thickness of 2.1mm. There is a 9 mm nabothian cyst in the cervix. The myometrium is heterogenous in there are hyperechoic areas throughout the myometrium consistent with her age. There is a small amount of fluid within the cervix. LEFT OVARY: 1.5 cmx1.2cmx1.1cm with a volume of 1ml. RIGHT OVARY: 5.8 cmx 3.9 cmx 4.7 cm with a volume of 56.1ml. There is a cyst in the right ovary measuring 5.3 cm x 4.6 cm x 3.7 cm. It has a simple appearance. No excrescences, no thick pena. Both ovaries are seen and appear normal. Doppler flow to both ovaries are seen. There is no fluid in the cul-de-sac. IMPRESSION: 1. Anteverted uterus normal in shape and size. The endometrium is thin. There is a small amount of fluid within the cervix that could be either mucus or blood. 2. Left ovary is seen and appears atrophic. The right ovary is enlarged with a simple cyst measuring 5.8 cm. Suggest follow-up in 3 months time. 0-rads 2, most certainly benign. 3. No fluid in the cul-de-sac Dictated by: Eleuterio Torres MD 03/18/2025 11:52 Eleuterio Torres MD in [place] 03/18/2025 11:52
== END 2025-03-17 23:59 | disposition home or self-care (01) ==
LOC: RAD 15:49
PROVIDERS: PCP Internal Medicine; Visit Provider Obstetrics & Gynecology
DX: N95.0 Postmenopausal bleeding (principal); N83.291 Other ovarian cyst, right side; N88.8 Other specified noninflammatory disorders of cervix uteri
CPT/HCPCS: 76830

== ENCOUNTER 2025-06-16 17:15 | Outpatient (CLI) | payer BC, OTHER, SELFPAY ==
--- OUTSIDE RECORDS SUMMARY | 2025-06-16 17:17 | XMS_ITS | Clinical Summary ---
Author Organization [facility] Address [address] [id number] Care Team Providers Care Paving Machine Operator Name Role Phone Gustavo Kranthi Solorzano DO [...] 03/15/2021 HEPATITIS C SCREENING 03/15/2021 INFLUENZA VACCINE 03/13/2025 05/18/2024, , 05/26/2022, Additional history exists MAMMOGRAM 08/01/2026 08/01/2024, 09/2022, 02/03/2022, Additional history exists ZOSTER VACCINE Completed 05/21/2023, 03/14/2023 Procedures Procedure Name Priority Date/Time Associated Diagnosis [...] architectural distortion to suggest development of malignancy. Kranthi Chen DO IMG MAMMOGRAPHY ORDERABL ES Final Result from Last 3 Months or Most Recently Relevant to Health Maintenance Insurance [facility] [employer] [employer] Member Subscriber Plan / Payer (Ef fective 2014-Present) Name:Deanna Wilder Relation to Subscriber:Self Name:Deanna Wilder Payer ID:[id number] (NAIC) Type:Not on file Address: [facility] [id number] [id number] Care Teams Paving Machine Operator Relationship Specialty Start Date End Date Kranthi Chen DO [address] [place] [id number] PCP - General Internal Medicine 05/14/23
== END 2025-06-16 23:59 | disposition home or self-care (01) ==
LOC: LAB.DROPOF 17:15
PROVIDERS: PCP Internal Medicine; Visit Provider Nurse Practitioner Family
DX: R39.15 Urgency of urination (principal); R30.9 Painful micturition, unspecified; R30.0 Dysuria
CPT/HCPCS: 87086; 87088